=== PATIENT | male | born 1965 | race Caucasian/White ===

== ENCOUNTER 2023-04-20 11:16 | Emergency (ER) | payer MEDICARE ==
[~2023-04-20] VITALS: Ht 193 cm; Wt 165.6 kg
[2023-04-20 11:27] VITALS: O2SAT 99
== END 2023-04-20 13:25 ==
LOC: ER 11:27
DX: R10.9 Unspecified abdominal pain (principal); F25.9 Schizoaffective disorder, unspecified; I10 Essential (primary) hypertension; Z86.718 Personal history of other venous thrombosis and embolism
CPT/HCPCS: 99284